=== PATIENT | male | born 1955 | race Two or more races ===

== ENCOUNTER 2017-04-14 18:45 | Inpatient (IN) | payer MEDICARE, MEDICAID ==
[~2017-04-14] VITALS: Ht 172.7 cm; Wt 104.3 kg
[2017-04-14] MEDS ORDERED: IBUPROFEN 600 MG TABLET PO ONE ×2 (19:00→19:16)
[2017-04-14] MEDS ORDERED: IV NS 0.9% 1,000 ML BAG IV ONE ×3 (19:00→20:30)
[2017-04-14] MEDS ORDERED: ACETAMINOPHEN 325 MG TABLET ONE (19:15)
[2017-04-14 19:17] LABS: BASOPHILS # (AUTO) 0.3 /CMM (0.0-0.2); BASOPHILS % (AUTO) 2.2 % (0.0-2.0); EOSINOPHILS % (AUTO) 0.1 % (0.0-6.0); HEMATOCRIT 38 % (39-51); HEMOGLOBIN 12.3 g/dL (13.5-17.5); LYMPHOCYTES # (AUTO) 0.6 /CMM (0.8-4.8); LYMPHOCYTES % (AUTO) 4.2 % (20.0-44.0); MEAN CORPUSCULAR HEMOGLOBIN 20 PG (26.0-33.0); MEAN CORPUSCULAR HGB CONC 32 g/dl (31.0-36.0); MEAN CORPUSCULAR VOLUME 63 fL (80-96); MONOCYTES # (AUTO) 0.7 /CMM (0.1-1.30); MONOCYTES % (AUTO) 4.7 % (2.0-12.0); NEUTROPHILS # (AUTO) 12.5 /CMM (1.8-8.9); NEUTROPHILS % (AUTO) 88.8 % (43.0-81.0); PLATELET COUNT (AUTO) 121 /CMM (150-450); RDW COEFFICIENT OF VARIATION 19.1 (11.5-15.0); RED BLOOD CELL COUNT(AUTO) 6.07 MIL/uL (4.5-6.0); WHITE BLOOD COUNT (AUTO) 14.1 K/uL (4.3-11.0)
--- NOTE | 2017-04-14 19:22 | NUR ---
PT CAME IN FOR FEVER SINCE LAST NIGHT AND URINARY RETENTION X TODAY. SEEN BY MD FOR EVAL. IV ACCESS STARTED. BLOOD DRAWN FOR LABS. SAFETY AND COMFORT MEASURES PROVIDED. WILL MONITOR.
--- NOTE | 2017-04-14 19:23 | NUR ---
PT MEDICATED ORDERED.
[2017-04-14] MEDS ORDERED: LIDOCAINE 2% JEL UROJET 10 ML MM ONE ×2 (19:30)
[2017-04-14 19:31] LABS: INR 1.05 (0.87-1.13); PROTHROMBIN TIME 10.9 SECS (9.5-12.7)
[2017-04-14 19:33] LABS: ALANINE AMINOTRANSFERASE 27 U/L (12-78); ALBUMIN 3.7 g/dL (3.4-5.0); ALKALINE PHOSPHATASE 81 U/L (46-116); ASPARTATE AMINOTRANSFERASE 20 U/L (15-37); BILIRUBIN,DIRECT 0.3 mg/dL (0.0-0.2); BILIRUBIN,TOTAL 1.3 mg/dL (0.2-1.0); CALCIUM, SERUM 8.6 mg/dL (8.5-10.1); CARBON DIOXIDE 26 mmol/L (21-32); CHLORIDE 103 mmol/L (98-107); CREATININE 1.3 mg/dL (0.6-1.3); GLUCOSE 122 mg/dL (74-106); POTASSIUM 3.7 mmol/L (3.5-5.1); SODIUM SERUM 138 mmol/L (136-145); TOTAL PROTEIN, SERUM 6.9 g/dL (6.4-8.2); UREA NITROGEN, BLOOD 15 mg/dL (7-18)
[2017-04-14 19:35] LABS: TROPONIN I < 0.017 ng/mL (0.00-0.056)
[2017-04-14 19:47] LABS: APPEARANCE,URINE Clear (CLEAR); BILIRUBIN,URINE Negative (NEGATIVE); BLOOD, URINE Moderate Ery/uL (NEGATIVE); COLOR,URINE Yellow (YELLOW); KETONES,URINE Trace (NEGATIVE); LEUKOCYTE ESTERASE ,URINE Negative (NEGATIVE); NITRITE, URINE Negative (NEGATIVE); PH,URINE 5.5 (5.0-8.0); PROTEIN,URINE Negative (NEGATIVE); UGLUCOSE Negative (NEGATIVE); UROBILINOGEN,URINE 0.2 EU/dL (0.2)
[2017-04-14] MEDS ORDERED: CEFTRIAXONE 1GM BAG (ER ONLY) 1 GM/50 ML PIGGYBACK IV ONE (20:00)
[2017-04-14] MEDS ORDERED: IV NS 0.9% 1,000 ML IV PRN (20:06)
[2017-04-14 20:13] LABS: BACTERIA,URINE Rare /HPF (None Seen); MUCUS,URINE Moderate /LPF (None Seen); SQUAMOUS EPITHELIAL CELL,UR Few /HPF (None Seen); URINE AMORPHOUS URATE Few /HPF (None Seen); WBC,URINE 0-2 /HPF (0-3)
[2017-04-14] MEDS ORDERED: CEFTRIAXONE 1GM BAG (ER ONLY) 50 ML IV ONE (20:22)
--- NOTE | 2017-04-14 20:29 | NUR ---
PT TRANSPORTED TO RADIOLOGY FOR CT ABD/PELVIS.
[2017-04-14] MEDS ORDERED: Z GUARD REMEDY 2 OZ OINT TP PRN ×2 (20:30→20:45)
[2017-04-14] MEDS ORDERED: ZOLPIDEM TARTRATE 5 MG TABLET PO PRN ×2 (20:30→20:45)
[2017-04-14] MEDS ORDERED: MAGNESIUM HYDROXIDE 30 ML UDC PO PRN ×2 (20:30→20:45)
[2017-04-14] MEDS ORDERED: MAG HYDROX/AL HYDROX/SIMETH 30 ML UDC PO PRN ×2 (20:30→20:45)
[2017-04-14] MEDS ORDERED: HYDROCODONE/APAP 5/325MG 1 EACH TABLET PO PRN ×2 (20:30→20:45)
[2017-04-14] MEDS ORDERED: ONDANSETRON HCL/PF 4 MG/2 ML VIAL IVP PRN ×2 (20:30→20:45)
[2017-04-14] MEDS ORDERED: ACETAMINOPHEN 325 MG TABLET PO PRN (20:30)
--- NOTE | 2017-04-14 20:30 | NUR ---
TELE 316-2
[2017-04-14 20:34] LABS: BAND % (MANUAL) 5 % (0.0-5.0); BASOPHILS % (MANUAL) 0 % (0.0-2.0); EOSINOPHILS % (MANUAL) 1 % (0-4); LYMPHOCYTES % (MANUAL) 6 % (16-48); MONOCYTES % (MANUAL) 3 % (0-11.0)
[2017-04-14 20:35] LABS: NEUTROPHILS % (MANUAL) 85 (42-76)
--- NOTE | 2017-04-14 20:38 | NUR ---
REPORT CALLED TO LOCKSMITHJUSTIN CASON.
--- NOTE | 2017-04-14 20:41 | NUR ---
PT BACK FROM RADIOLOGY. PENDING CT ABD/PELVIS RESULT.
--- NOTE | 2017-04-14 21:46 | NUR ---
pt transported to tele via acls protocol.
[2017-04-14 22:00] VITALS: BP 104/55
--- NOTE | 2017-04-14 22:00 | NUR ---
CAD OPERATOR NOTE RECEIVED PATIENT AWAKE ALERT AND ORIENTED FROM ER. AT BEDSIDE. NO RESPIRATORY DISTRESS OR SOB NOTED. NO FEVER AT THIS TIME. IV SITE INTACT, WITH NO REDNESS NOTED. SKIN INTACT, WITH NO BREAKDOWN OR BRUISING NOTED. ORIENTED PATIENT AND TO ROOM AND TO UNIT. WAITING FOR MD ORDERS. BED LOCKED AND IN LOWEST POSITION. SIDE RAILS UP, CALL LIGHT WITHIN REACH. WILL CONTINUE TO MONITOR.
[2017-04-14 22:46] VITALS: BP 104/55
[2017-04-14] MEDS: IV NS 0.9% 1,000 ML IV PRN (23:01)
[2017-04-15 04:00] VITALS: BP 99/57
[2017-04-15] MEDS ORDERED: ACETAMINOPHEN 325 MG TABLET ONE (04:41)
[2017-04-15] MEDS: ACETAMINOPHEN 325 MG TABLET PO PRN ×3 (04:42→21:48)
--- NOTE | 2017-04-15 04:49 | NUR ---
SCREEN MAKING SUPERVISOR NOTE PATIENT HAS TEMP OF 102.4. 650MG TYLENOL GIVEN PO. ICE PACKS APPLIED TO UNDERARMS AND CHEST. WILL CONTINUE TO MONITOR CLOSELY.
[2017-04-15] MEDS ORDERED: PRAM0.253 PO (05:42)
[2017-04-15] MEDS ORDERED: TAMS0.4C34 PO (05:42)
[2017-04-15] MEDS ORDERED: OMEP40CA37 PO (05:42)
--- NOTE | 2017-04-15 06:17 | NUR ---
CIGARETTE CARTON SEALER NOTE TELE READING NSR 86. PATIENT STABLE. TEMPERATURE 98.8 AT THIS TIME. IV SITE INTACT, WITH FLUIDS RUNNING ORDERED. ALL NEEDS MET AND ATTENDED TO. WILL ENDORSE TO DAY SHIFT FOR RAUL.
--- NOTE | 2017-04-15 07:43 | NUR ---
METER INSPECTOR: INITIAL NOTE RECEIVED PT A/OX4. TELE PT. BOLAÑOS CATH PLACED IN ER. PATENT AND DRAINING. NO PAIN NOTED. NO DISTRESS NOTED. NO SOB NOTED. L HAND #20 RUNNING NS AT 125ML/HR. NO REDNESS. NO INFILTRATION NOTED. IS ON REGULAR DIET. SKIN INTACT. RESTING COMFORTABLY IN BED. CALL LIGHT WITHIN REACH.
[2017-04-15] MEDS: IV NS 0.9% 1,000 ML IV PRN ×2 (07:58→17:17)
[2017-04-15 08:00] VITALS: BP 97/53
[2017-04-15 12:00] VITALS: BP 118/70
[2017-04-15] MEDS: ENOXAPARIN SODIUM 40 MG/0.4 ML DISP.SYRIN SQ SCH (12:22)
--- NOTE | 2017-04-15 12:24 | NUR ---
TEMP 101.9 TYLENOL 650 MG PO GIVEN.COOLING MEASURES RENDERED.ENCOURAGED INCREASE FLUIDS.PT DENIES ANY PAIN OR DISTRESS.PT NOT SHIVERING.WILL CONTINUE TO MONITOR.
[2017-04-15 12:32] LABS: BASOPHILS % (AUTO) 0.1 % (0.0-2.0); EOSINOPHILS % (AUTO) 0.5 % (0.0-6.0); HEMATOCRIT 35 % (39-51); HEMOGLOBIN 11.1 g/dL (13.5-17.5); LYMPHOCYTES # (AUTO) 0.7 /CMM (0.8-4.8); LYMPHOCYTES % (AUTO) 9.8 % (20.0-44.0); MEAN CORPUSCULAR HEMOGLOBIN 20 PG (26.0-33.0); MEAN CORPUSCULAR HGB CONC 32 g/dl (31.0-36.0); MEAN CORPUSCULAR VOLUME 63 fL (80-96); MONOCYTES # (AUTO) 0.5 /CMM (0.1-1.30); MONOCYTES % (AUTO) 6.7 % (2.0-12.0); NEUTROPHILS # (AUTO) 5.6 /CMM (1.8-8.9); NEUTROPHILS % (AUTO) 82.9 % (43.0-81.0); PLATELET COUNT (AUTO) 95 /CMM (150-450); RED BLOOD CELL COUNT(AUTO) 5.49 MIL/uL (4.5-6.0); WHITE BLOOD COUNT (AUTO) 6.7 K/uL (4.3-11.0)
[2017-04-15 12:39] LABS: CALCIUM, SERUM 7.6 mg/dL (8.5-10.1); POTASSIUM 3.7 mmol/L (3.5-5.1)
[2017-04-15 12:52] LABS: BAND % (MANUAL) 2 % (0.0-5.0); EOSINOPHILS % (MANUAL) 1 % (0-4); LYMPHOCYTES % (MANUAL) 10 % (16-48); MONOCYTES % (MANUAL) 7 % (0-11.0); NEUTROPHILS % (MANUAL) 80 (42-76)
[2017-04-15 13:38] LABS: FREE PSA 0.51 ng/mL (0.00-45); PROSTATE SPECIFIC ANTIGEN SCR 1.66 ng/mL (0.00-4.00)
--- NOTE | 2017-04-15 13:38 | NUR ---
RECHECKED PT'S TEMP 99.3.ENCOURAGED FLUIDS.WILL CONTINUE TO MONITOR.
[2017-04-15 16:00] VITALS: BP 105/66
--- NOTE | 2017-04-15 17:57 | NUR ---
HEADER UP: CLOSING NOTE PT A/OX4. NO DISTRESS. NO SOB NOTED. NO PAIN NOTED. VS STABLE. ATE WITH OUT N/V DURING SHIFT. IV ON L HAND RUNNING NS AT 125ML/HR. SITE CLEAR, AND PATENT. BOLAÑOS CATH OUTPUT 700. PATENT AND DRAINING. AMBULATORY WITH ASSISTANCE. ABLE TO DO ADLS WITH OUT DISTRESS/ COMFORTABLY. RESTING COMFORTABLY IN BED. CALL LIGHT WITHIN REACH.
[2017-04-15] MEDS ORDERED: PRAMIPEXOLE DI-HCL 0.25 MG TABLET PO SCH (18:00)
[2017-04-15] MEDS: CEFTRIAXONE 1 G in IV D5W 50 ML IV SCH (19:46)
[2017-04-15 20:00] VITALS: BP 130/74
[2017-04-15 20:19] VITALS: BP 130/74
[2017-04-15] MEDS: TAMSULOSIN 0.4 MG CAP.SR.24H PO SCH (21:06)
--- NOTE | 2017-04-15 21:49 | NUR ---
PRN TYLENOL: PT'S TEMP NOTED TO BE 99.6, COOLING MEASURES PROVIDED, ALSO TURNED AIR CONDITION ON, AND REMOVED EXTRA BLANKETS, PER PT REQUESTING TYLENOL, HE STATED HE CONSIDERED IT FEVER, TRANSLATED BY AT BED SIDE, PRN TYLENOL 650MG TAB PO ADMINISTERED AT THIS TIME, WILL CONTINUE TO MONITOR AND REASSESS
--- NOTE | 2017-04-15 23:16 | NUR ---
REASSESSMENT TYLENOL: RECHECK TEMP AND REVEAL 99.6, PT DOESN'T WANT TO USE THE ICE PACK AND REFUSING TO TURN ON AC, HE STATED HE FEELS COLD, ALSO HE WANTS THE BLANKET ON, EDUCATION PROVIDED TO THE PT, BUT PT REFUSED, WILL CONTINUE TO MONITOR
[2017-04-16] VITALS (7 sets, daily range): BP systolic 123–138; BP diastolic 72–80
[2017-04-16] MEDS: IV NS 0.9% 1,000 ML IV PRN ×2 (01:13→10:34)
--- NOTE | 2017-04-16 07:04 | NUR ---
RN CLOSING NOTES: PT IN BED, AWAKE, REMAINS ON RA RESPIRATION EVEN AND UNLABORED, LATEST TEMP IS 99.1, DENIES ANY PAIN OR DISCOMFORT AT THIS TIME, ON SINUS RHYTHM HR 80.LEFT HAND IV ACCESS REMAINS PATENT AND FLUSHING WELL, INFUSING WITH NS AT 125 ML/HR, BOLAÑOS CATHETER REMAINS IN PLACED,. BOLAÑOS BAG EMPTIED BY DIRECTOR FAMILY, VS REMAINS STABLE, NEEDS ATTENDED, BLE KEPT OFFLOADED ON PILLOWS, SAFETY PRECAUTIONS FOR FALL REMAINS ENGAGED, CALL LIGHT ION REACH, WILL ENDORSE TO DAY RN FOR RAUL.
--- NOTE | 2017-04-16 07:30 | NUR ---
TELE/RN OPENING NOTES RECEIVED PT. IN BED A&OX4. BREATHING ON ROOM AIR UNLABORED, AND NO SOB. PT. DENIES PAIN, AND NO S/S OF ACUTE DISTRESS. IV FLUIDS AT BEDSIDE. BED IS IN LOWEST POSITION, 2 SIDE RAILS UP, AND INSTRUCTED PT. TO USE CALL LIGHT FOR ASSISTANCE.
--- NOTE | 2017-04-16 07:30 | NUR ---
PT. IS ON TELE MONITOR READING SINUS RHYTHM 89 BPM.
[2017-04-16 07:45] LABS: EOSINOPHILS # (AUTO) 0.2 /CMM (0.0-0.7); EOSINOPHILS % (AUTO) 2.3 % (0.0-6.0); HEMATOCRIT 35 % (39-51); HEMOGLOBIN 11.1 g/dL (13.5-17.5); LYMPHOCYTES # (AUTO) 0.8 /CMM (0.8-4.8); LYMPHOCYTES % (AUTO) 12.9 % (20.0-44.0); MEAN CORPUSCULAR HEMOGLOBIN 20 PG (26.0-33.0); MEAN CORPUSCULAR HGB CONC 32 g/dl (31.0-36.0); MEAN CORPUSCULAR VOLUME 64 fL (80-96); MONOCYTES # (AUTO) 0.5 /CMM (0.1-1.30); MONOCYTES % (AUTO) 8.2 % (2.0-12.0); NEUTROPHILS % (AUTO) 76.6 % (43.0-81.0); PLATELET COUNT (AUTO) 102 /CMM (150-450); RDW COEFFICIENT OF VARIATION 21.7 (11.5-15.0); RED BLOOD CELL COUNT(AUTO) 5.46 MIL/uL (4.5-6.0); WHITE BLOOD COUNT (AUTO) 6.6 K/uL (4.3-11.0)
[2017-04-16 08:24] LABS: CALCIUM, SERUM 7.9 mg/dL (8.5-10.1); CREATININE 0.9 mg/dL (0.6-1.3); MAGNESIUM 1.7 mg/dL (1.8-2.4); PHOSPHORUS 2.3 mg/dL (2.5-4.9); POTASSIUM 3.9 mmol/L (3.5-5.1)
--- NOTE | 2017-04-16 10:00 | NUR ---
PT.'S WAS DISCONTINUED ON TELE MONITOR READINGS.
[2017-04-16 10:28] LABS: EOSINOPHILS % (MANUAL) 1 % (0-4); LYMPHOCYTES % (MANUAL) 18 % (16-48); MONOCYTES % (MANUAL) 8 % (0-11.0); NEUTROPHILS % (MANUAL) 73 (42-76)
[2017-04-16] MEDS: ENOXAPARIN SODIUM 40 MG/0.4 ML DISP.SYRIN SQ SCH (10:30)
[2017-04-16] MEDS: Magnesium 1GM/D5W 100ML PREMIX 100 ML IV SCH ×2 (10:34→13:43)
[2017-04-16] MEDS ORDERED: K PHOS NEUTRAL 250 MG TABLET PO ONE (11:30)
[2017-04-16] MEDS: CARBIDOPA/LEVODOPA 25/100 MG 1 UDTAB PO SCH ×3 (11:41→23:12)
[2017-04-16] MEDS: PRAMIPEXOLE DI-HCL 0.25 MG TABLET PO SCH ×3 (11:41→23:12)
--- NOTE | 2017-04-16 11:46 | NUR ---
PER YEIMY DESIR TO DISCONTINUE BOLAÑOS CATHETER. BOLAÑOS CATHETER OUTPUT 700 ML OF CLEAR AND YELLOW URINE. BOLAÑOS CATHETER WAS REMOVED WITHOUT COMPLICATIONS. PT. WAS EXPLAINED ABOUT VOIDING WITHIN 6 HOURS.
--- NOTE | 2017-04-16 12:31 | NUR ---
RN NOTES 1ST POST VOID. PT. VOIDED 100 CC OF CLEAR AND YELLOW URINE POST-BOLAÑOS CATHETER REMOVAL AT 1151.
--- NOTE | 2017-04-16 13:07 | NUR ---
RN NOTES ORAL TEMP. 97.9 F
--- NOTE | 2017-04-16 15:56 | NUR ---
RN NOTES PT. HAD 400 CC OUTPUT IN URINAL CLEAR, AND YELLOW URINE.
--- NOTE | 2017-04-16 19:30 | NUR ---
MS RN NOTE RECEIVED PATIENT FROM DAY SHIFT, PATIENT IS ALERT AND ORIENTEDX3, NO S/S OF RESPIRATORY DISTRESS OR PAIN AT THIS TIME. IV ON LEFT HAND IS PATENT AND INTACT, FLUID IS RUNNING. SRX2, BED IN LOW POSITION, CALL LIGHT WITHIN REACH, WILL CONTINUE TO MONITOR PATIENT.
--- NOTE | 2017-04-16 19:35 | NUR ---
RN CLOSING NOTES PT. IN BED A&OX4 WITH FAMILY NEAR BEDSIDE. BREATHING ON ROOM AIR UNLABORED, AND NO SOB. NO S/S OF ACUTE DISTRESS. IV FLUIDS AT BEDSIDE RUNNING AT 125 ML/HR. BED IS IN LOWEST POSITION, 2 SIDE RAILS UP, AND INSTRUCTED PT. TO USE CALL LIGHT FOR ASSISTANCE.
[2017-04-16] MEDS: CEFTRIAXONE 1 G in IV D5W 50 ML IV SCH (19:58)
[2017-04-16] MEDS: TAMSULOSIN 0.4 MG CAP.SR.24H PO SCH (21:53)
[2017-04-17] MEDS: IV NS 0.9% 1,000 ML IV PRN (00:37)
[2017-04-17] MEDS: ACETAMINOPHEN 325 MG TABLET PO PRN (01:46)
--- NOTE | 2017-04-17 01:48 | NUR ---
MS RN NOTE PATIENT COMPLAINS OF PAIN HEADACHE, TYLENOL 650MG PO GIVEN.
[2017-04-17] MEDS: PRAMIPEXOLE DI-HCL 0.25 MG TABLET PO SCH (05:45)
[2017-04-17] MEDS: CARBIDOPA/LEVODOPA 25/100 MG 1 UDTAB PO SCH (05:45)
--- NOTE | 2017-04-17 06:41 | NUR ---
MS RN NOTE PT IN BED, AWAKE, REMAINS ON RA RESPIRATION EVEN AND UNLABORED,DENIES ANY PAIN OR DISCOMFORT AT THIS TIME. LEFT HAND IV ACCESS REMAINS PATENT AND FLUSHING WELL, FLUID IS RUNNING. PATIENT WAS ABLE TO VOID WITHOUT DIFFICULTY THROUGHOUT THE SHIFT. BLE KEPT OFFLOADED ON PILLOWS, SAFETY PRECAUTIONS FOR FALL REMAINS ENGAGED, WILL ENDORSE TO DAY SHIFT NURSE FOR RAUL.
--- NOTE | 2017-04-17 07:27 | NUR ---
RN OPENING NOTES PATIENT IS SEATED BY THE BEDSIDE IN A CHAIR COMFORTABLY. PATIENT IS AOX3. PATIENT DENIES ANY PAIN AT THIS TIME. RESPIRATIONS APPEAR TO BE EVEN AND UNLABORED. NO ACUTE DISTRESS NOTED. PATIENT DENIES SOB. IV ACCESS LEFT HAND 20G WITH NS RUNNING @125 ML/HR. POSSIBLE D/C TODAY. BED LOCKED IN THE LOWEST POSITION WITH SIDE RAILS UP X2. CALL LIGHT WITHIN REACH. WILL CONTINUE TO MONITOR, ASSESS AND EDUCATE PATIENT.
[2017-04-17 07:52] LABS: EOSINOPHILS # (AUTO) 0.1 /CMM (0.0-0.7); EOSINOPHILS % (AUTO) 2.7 % (0.0-6.0); HEMATOCRIT 35 % (39-51); HEMOGLOBIN 11.3 g/dL (13.5-17.5); LYMPHOCYTES # (AUTO) 1.2 /CMM (0.8-4.8); LYMPHOCYTES % (AUTO) 21.7 % (20.0-44.0); MEAN CORPUSCULAR HEMOGLOBIN 20 PG (26.0-33.0); MEAN CORPUSCULAR HGB CONC 32 g/dl (31.0-36.0); MEAN CORPUSCULAR VOLUME 63 fL (80-96); MONOCYTES # (AUTO) 0.5 /CMM (0.1-1.30); MONOCYTES % (AUTO) 8.9 % (2.0-12.0); NEUTROPHILS # (AUTO) 3.6 /CMM (1.8-8.9); NEUTROPHILS % (AUTO) 66.7 % (43.0-81.0); PLATELET COUNT (AUTO) 119 /CMM (150-450); RDW COEFFICIENT OF VARIATION 20.8 (11.5-15.0); RED BLOOD CELL COUNT(AUTO) 5.55 MIL/uL (4.5-6.0); WHITE BLOOD COUNT (AUTO) 5.4 K/uL (4.3-11.0)
[2017-04-17 08:00] VITALS: BP 116/73
[2017-04-17 08:09] LABS: CALCIUM, SERUM 8.1 mg/dL (8.5-10.1); CREATININE 0.9 mg/dL (0.6-1.3); MAGNESIUM 2.1 mg/dL (1.8-2.4); PHOSPHORUS 3.4 mg/dL (2.5-4.9); POTASSIUM 3.6 mmol/L (3.5-5.1)
[2017-04-17] MEDS: ENOXAPARIN SODIUM 40 MG/0.4 ML DISP.SYRIN SQ SCH (08:26)
--- NOTE | 2017-04-17 09:08 | NUR ---
RN CLOSING NOTES ENDORSED TO JUSTIN AYALA FOR RAUL. PATIENT IN STABLE CONDITION. MORNING MEDS GIVEN. BED LOCKED IN THE LOWEST POSITION WITH SIDERAILS UPX2. CALL LIGHT WITHIN REACH.
[2017-04-17 09:09] LABS: BAND % (MANUAL) 1 % (0.0-5.0); EOSINOPHILS % (MANUAL) 2 % (0-4); LYMPHOCYTES % (MANUAL) 30 % (16-48); MONOCYTES % (MANUAL) 11 % (0-11.0); NEUTROPHILS % (MANUAL) 56 (42-76)
--- NOTE | 2017-04-17 09:15 | NUR ---
RN NOTES RECEIVED PATIENT IS SEATED BY THE BEDSIDE IN A CHAIR COMFORTABLY. PATIENT IS AOX3. PATIENT DENIES ANY PAIN AT THIS TIME. RESPIRATIONS APPEAR TO BE EVEN AND UNLABORED. NO ACUTE DISTRESS NOTED. PATIENT DENIES SOB. IV ACCESS LEFT HAND 20G WITH NS RUNNING @125 ML/HR. POSSIBLE D/C TODAY. BED LOCKED IN THE LOWEST POSITION WITH SIDE RAILS UP X2. CALL LIGHT WITHIN REACH. WILL CONTINUE TO MONITOR, ASSESS AND EDUCATE PATIENT.
[2017-04-17] MEDS ORDERED: TAMS-12 PO (09:38)
[2017-04-17] MEDS ORDERED: CEFU250S PO (09:38)
--- NOTE | 2017-04-17 10:52 | NUR ---
RN NOTES PATIENT IS SEATED BY THE BEDSIDE IN A CHAIR COMFORTABLY. PATIENT IS AOX3. PATIENT DENIES ANY PAIN AT THIS TIME. RESPIRATIONS APPEAR TO BE EVEN AND UNLABORED. NO ACUTE DISTRESS NOTED. PATIENT DENIES SOB. IV ACCESS LEFT HAND 20G AND ID BANDS REMOVED WITH NO ASE NOTED FOR DC TODAY.PT WITH DISCHARGE ORDERS, PRESCRIPTION GIVEN TO PT, ALL DISCHARGE INSTRUCTIONS AND APPROPRIATE PAPERWORK GIVEN TO PATIENT AND REVIEWED, NOTED WITH VERBAL UNDERSTANDING. PATIENT ASSISTED TO LOBBY BY RN, DISCHARGED IN STABLE CONDITION
== END 2017-04-17 11:00 | disposition home or self-care (01) | DRG 872 ==
LOC: ER 18:46 → TELE 21:00 → MED 04-16 08:46
PROVIDERS: ADMIT Internal Medicine; ATTEND Internal Medicine
DX: A41.9 Sepsis, unspecified organism (principal); E87.2 Acidosis; N39.0 Urinary tract infection, site not specified; F17.210 Nicotine dependence, cigarettes, uncomplicated; G20 Parkinson's disease; N13.9 Obstructive and reflux uropathy, unspecified; N40.1 Benign prostatic hyperplasia with lower urinary tract symptoms; D47.3 Essential (hemorrhagic) thrombocythemia; E66.9 Obesity, unspecified; K21.9 Gastro-esophageal reflux disease without esophagitis; R33.9 Retention of urine, unspecified; Z68.35 Body mass index [BMI] 35.0-35.9, adult
CPT/HCPCS: 36415; 71010-TC; 71250-TC; 80048-TC; 80076-TC; 81000-TC; 83605-TC; 83735-TC; 84100-TC; 84153-TC; 84154-TC; 84484-TC; 85025-TC; 85730-TC; 87040-TC; 87081-TC; 87086-TC; 87400; A4606; J0696; J1650; J3475; J3490; J7030; J7060; Z7610